=== PATIENT | female | born 1955 | race Caucasian/White ===

== ENCOUNTER 2019-02-12 08:45 | Inpatient (IN) ==
[2019-02-12 11:07] LABS: Basophils % 0.4 % (0.0-0.8); Eosinophils % 0.3 % (0.00-10.9); Hematocrit 33.7 VOL% (35.7-47.0); Hemoglobin 10.4 GM/DL (12.0-16.0); Immature Granulocytes % 0.5 %; Immature Granulocytes Absolute 0.05 #; Lymphocytes # 1.5 10*3/uL (1.4-4.0); Lymphocytes % 15.9 % (21.3-54.2); Mean Corpuscular HGB Conc 30.9 GM/DL (32-36); Mean Corpuscular Volume 81.6 FL (87-102); Mean Platelet Volume 10.3 FL (9.6-12.0); Monocytes % 9.7 % (1.7-12.7); Neutrophils % 73.2 % (38.7-73.9); Platelet Count 310 T/CUMM (130-400); Red Blood Count 4.13 MC/CUMM (3.8-5.5); Red Cell Distribution Width 16.6 % (9.3-17.3); White Blood Count 9.6 T/CUMM (4-12)
[2019-02-12 11:24] LABS: Hypochromasia 1+; Platelet Estimate Adequate
[2019-02-12 11:25] LABS: Albumin 2.6 G/DL (3.4-5.0); Bilirubin,Total 0.4 MG/DL (0.2-1.0); Calcium 8.7 MG/DL (8.5-10.1); Osmolality,Calculated 271.8 MOS/KG (273-304); Total Protein 7.7 G/DL (6.4-8.3)
[2019-02-12] MEDS ORDERED: NICOTINE 21 MG/24 HR PATCH TRANSDERM PRN (12:25)
[2019-02-12] MEDS ORDERED: DEXTROSE 50% 25 GM/50 ML VIAL IV PRN (12:25)
[2019-02-12] MEDS ORDERED: ONDANSETRON 4 MG/2 ML VIAL IV PRN (12:25)
[2019-02-12] MEDS ORDERED: GLUCAGON 1 MG VIAL IM PRN (12:25)
[2019-02-12] MEDS: SODIUM CHLORIDE 0.9% 1,000 ML IV SCH (13:08)
[2019-02-12] MEDS: CEFTAROLINE 600 MG in SODIUM CHLORIDE 0.9% 100 ML IV SCH (13:09)
[2019-02-12] MEDS: ENOXAPARIN 30 MG/0.3 ML SYRINGE SUBCUT SCH (13:09)
[2019-02-12 14:05] LABS: Risk Ratio 5.48; Thyroid Stimulating Hormone 1.74 uIU/ml (0.358-3.74); VLDL CHOLESTEROL 41.2 MG/DL
[2019-02-12] MEDS ORDERED: INSULIN LISPRO 100 UNIT/ML SUBCUT SCH (16:30)
[2019-02-12] MEDS: INSULIN LISPRO 100 UNIT/ML SUBCUT SCH ×2 (16:53→22:29)
[2019-02-12] MEDS: DICLOFENAC 1% GEL 100 GM TUBE TOP SCH ×2 (16:54→22:29)
[2019-02-12] MEDS ORDERED: ACETAMINOPHEN 325 MG TABLET PO PRN (20:34)
[2019-02-12] MEDS ORDERED: INSULIN GLARGINE 100 UNIT/ML SUBCUT SCH (21:00)
[2019-02-12] MEDS: hydrOXYzine HCL 25 MG TABLET PO SCH (22:28)
[2019-02-12] MEDS: ACETAMINOPHEN 325 MG TABLET PO PRN (22:28)
[2019-02-13] MEDS: SODIUM CHLORIDE 0.9% 1,000 ML IV SCH ×2 (02:31→17:58)
[2019-02-13] MEDS: CEFTAROLINE 600 MG in SODIUM CHLORIDE 0.9% 100 ML IV SCH ×2 (02:31→17:57)
[2019-02-13 04:50] LABS: Basophils % 0.3 % (0.0-0.8); Eosinophils # 0.1 10*3/uL (0.0-0.87); Eosinophils % 1.4 % (0.00-10.9); Hematocrit 28.7 VOL% (35.7-47.0); Hemoglobin 8.9 GM/DL (12.0-16.0); Immature Granulocytes % 0.8 %; Immature Granulocytes Absolute 0.07 #; Lymphocytes # 1.5 10*3/uL (1.4-4.0); Mean Corpuscular Volume 81.3 FL (87-102); Mean Platelet Volume 10.3 FL (9.6-12.0); Monocytes % 9.5 % (1.7-12.7); Platelet Count 333 T/CUMM (130-400); Red Blood Count 3.53 MC/CUMM (3.8-5.5); Red Cell Distribution Width 16.7 % (9.3-17.3); White Blood Count 9.2 T/CUMM (4-12)
[2019-02-13 05:17] LABS: Calcium 8.3 MG/DL (8.5-10.1); Osmolality,Calculated 273.1 MOS/KG (273-304)
[2019-02-13] MEDS ORDERED: POTASSIUM CHLORIDE 20 MEQ TABLET PO PRN (08:32)
[2019-02-13] MEDS ORDERED: MAGNESIUM SULF RIDER 4 GM in PREMIX 1 EACH IV PRN (08:33)
[2019-02-13] MEDS ORDERED: MAGNESIUM SULF RIDER 2 GM in PREMIX 1 EACH IV PRN (08:33)
[2019-02-13] MEDS: METOPROLOL SUCCINATE XL 100 MG TABLET PO SCH (08:52)
[2019-02-13] MEDS: PANTOPRAZOLE 40 MG TABLET PO SCH (08:52)
[2019-02-13] MEDS: ATORVASTATIN 40 MG TABLET PO SCH (08:52)
[2019-02-13] MEDS: hydrOXYzine HCL 25 MG TABLET PO SCH ×2 (08:52→21:25)
[2019-02-13] MEDS: ASPIRIN CHEW 81 MG TABLET PO SCH (08:53)
[2019-02-13] MEDS: INSULIN LISPRO 100 UNIT/ML SUBCUT SCH ×4 (08:53→21:33)
[2019-02-13] MEDS: DICLOFENAC 1% GEL 100 GM TUBE TOP SCH ×2 (10:00→21:35)
[2019-02-13] MEDS: ENOXAPARIN 40 MG/0.4 ML SYRINGE SUBCUT SCH (17:57)
[2019-02-13] MEDS: DOCUSATE SODIUM 100 MG CAPSULE PO PRN (21:26)
[2019-02-14] MEDS: CEFTAROLINE 600 MG in SODIUM CHLORIDE 0.9% 100 ML IV SCH ×3 (00:35→18:42)
[2019-02-14 04:43] LABS: Basophils # 0.1 10*3/uL (0.0-0.2); Basophils % 0.5 % (0.0-0.8); Eosinophils # 0.1 10*3/uL (0.0-0.87); Eosinophils % 1.2 % (0.00-10.9); Hematocrit 28.1 VOL% (35.7-47.0); Hemoglobin 8.6 GM/DL (12.0-16.0); Immature Granulocytes % 0.7 %; Immature Granulocytes Absolute 0.08 #; Lymphocytes # 1.2 10*3/uL (1.4-4.0); Mean Corpuscular HGB Conc 30.6 GM/DL (32-36); Mean Corpuscular Volume 81.7 FL (87-102); Mean Platelet Volume 9.9 FL (9.6-12.0); Monocytes % 8.7 % (1.7-12.7); Neutrophils % 78.9 % (38.7-73.9); Platelet Count 379 T/CUMM (130-400); Red Blood Count 3.44 MC/CUMM (3.8-5.5); Red Cell Distribution Width 16.7 % (9.3-17.3); White Blood Count 11.9 T/CUMM (4-12)
[2019-02-14 05:09] LABS: Calcium 8.4 MG/DL (8.5-10.1); Osmolality,Calculated 273.1 MOS/KG (273-304)
[2019-02-14] MEDS: ATORVASTATIN 40 MG TABLET PO SCH (10:39)
[2019-02-14] MEDS: METOPROLOL SUCCINATE XL 100 MG TABLET PO SCH (10:39)
[2019-02-14] MEDS: ASPIRIN CHEW 81 MG TABLET PO SCH (10:39)
[2019-02-14] MEDS: PANTOPRAZOLE 40 MG TABLET PO SCH (10:39)
[2019-02-14] MEDS: hydrOXYzine HCL 25 MG TABLET PO SCH ×2 (10:39→21:54)
[2019-02-14] MEDS: INSULIN LISPRO 100 UNIT/ML SUBCUT SCH ×4 (10:40→21:53)
[2019-02-14] MEDS: DICLOFENAC 1% GEL 100 GM TUBE TOP SCH ×4 (10:41→22:41)
[2019-02-14] MEDS: ENOXAPARIN 40 MG/0.4 ML SYRINGE SUBCUT SCH (17:42)
[2019-02-14] MEDS: metFORMIN 850 MG TABLET PO SCH ×2 (17:42→21:54)
[2019-02-15] MEDS: ACETAMINOPHEN 325 MG TABLET PO PRN (00:40)
[2019-02-15 05:04] LABS: Basophils # 0.1 10*3/uL (0.0-0.2); Basophils % 0.5 % (0.0-0.8); Eosinophils # 0.3 10*3/uL (0.0-0.87); Eosinophils % 2.7 % (0.00-10.9); Hematocrit 27.2 VOL% (35.7-47.0); Hemoglobin 8.4 GM/DL (12.0-16.0); Immature Granulocytes % 1.2 %; Immature Granulocytes Absolute 0.13 #; Lymphocytes # 1.9 10*3/uL (1.4-4.0); Lymphocytes % 17.7 % (21.3-54.2); Mean Corpuscular HGB Conc 30.9 GM/DL (32-36); Mean Corpuscular Volume 81.7 FL (87-102); Mean Platelet Volume 10.2 FL (9.6-12.0); Monocytes % 8.2 % (1.7-12.7); Neutrophils % 69.7 % (38.7-73.9); Platelet Count 404 T/CUMM (130-400); Red Blood Count 3.33 MC/CUMM (3.8-5.5); Red Cell Distribution Width 16.8 % (9.3-17.3); White Blood Count 10.6 T/CUMM (4-12)
[2019-02-15 05:20] LABS: Calcium 8.6 MG/DL (8.5-10.1); Osmolality,Calculated 276.1 MOS/KG (273-304)
[2019-02-15] MEDS: CEFTAROLINE 600 MG in SODIUM CHLORIDE 0.9% 100 ML IV SCH (06:11)
[2019-02-15] MEDS: DICLOFENAC 1% GEL 100 GM TUBE TOP SCH ×5 (07:30→21:23)
[2019-02-15] MEDS: SODIUM CHLORIDE 0.9% 1,000 ML IV SCH ×3 (07:31→21:29)
[2019-02-15] MEDS: metFORMIN 850 MG TABLET PO SCH (08:56)
[2019-02-15] MEDS: METOPROLOL SUCCINATE XL 100 MG TABLET PO SCH (08:57)
[2019-02-15] MEDS: hydrOXYzine HCL 25 MG TABLET PO SCH ×2 (08:57→21:24)
[2019-02-15] MEDS: PANTOPRAZOLE 40 MG TABLET PO SCH (08:57)
[2019-02-15] MEDS: ATORVASTATIN 40 MG TABLET PO SCH (08:57)
[2019-02-15] MEDS: INSULIN LISPRO 100 UNIT/ML SUBCUT SCH ×4 (08:57→21:23)
[2019-02-15] MEDS: ASPIRIN CHEW 81 MG TABLET PO SCH (08:57)
[2019-02-15 10:51] LABS: Calcium 8.6 MG/DL (8.5-10.1); Osmolality,Calculated 277.2 MOS/KG (273-304)
[2019-02-15] MEDS: cefTRIAXone 2,000 MG in SYRINGE 1 EACH IV SCH (12:53)
[2019-02-15] MEDS: ENOXAPARIN 30 MG/0.3 ML SYRINGE SUBCUT SCH (15:47)
[2019-02-15] MEDS: ENOXAPARIN 40 MG/0.4 ML SYRINGE SUBCUT SCH (16:49)
[2019-02-16 05:21] LABS: Basophils # 0.1 10*3/uL (0.0-0.2); Basophils % 0.6 % (0.0-0.8); Eosinophils # 0.4 10*3/uL (0.0-0.87); Eosinophils % 4.1 % (0.00-10.9); Hematocrit 25.3 VOL% (35.7-47.0); Hemoglobin 7.7 GM/DL (12.0-16.0); Immature Granulocytes % 1.4 %; Immature Granulocytes Absolute 0.14 #; Lymphocytes # 1.9 10*3/uL (1.4-4.0); Lymphocytes % 18.7 % (21.3-54.2); Mean Corpuscular HGB Conc 30.4 GM/DL (32-36); Mean Corpuscular Volume 81.4 FL (87-102); Mean Platelet Volume 10.5 FL (9.6-12.0); Neutrophils % 68.2 % (38.7-73.9); Platelet Count 475 T/CUMM (130-400); Red Blood Count 3.11 MC/CUMM (3.8-5.5); White Blood Count 10.1 T/CUMM (4-12)
[2019-02-16 05:45] LABS: Calcium 8.4 MG/DL (8.5-10.1); Osmolality,Calculated 280.1 MOS/KG (273-304)
[2019-02-16 05:53] LABS: Eosinophils 4 % (0-10); Hypochromasia 1+; Lymphocytes 17 % (20-55); Ovalocytes Slight; Platelet Estimate Adequate; Segmented Neutrophils 68 % (50-85); Total Cells Counted 100
[2019-02-16] MEDS: DICLOFENAC 1% GEL 100 GM TUBE TOP SCH ×4 (10:09→20:34)
[2019-02-16] MEDS: cefTRIAXone 2,000 MG in SYRINGE 1 EACH IV SCH (10:11)
[2019-02-16] MEDS: INSULIN LISPRO 100 UNIT/ML SUBCUT SCH ×4 (10:11→21:28)
[2019-02-16] MEDS: METOPROLOL SUCCINATE XL 100 MG TABLET PO SCH (10:13)
[2019-02-16] MEDS: ASPIRIN CHEW 81 MG TABLET PO SCH (10:13)
[2019-02-16] MEDS: ATORVASTATIN 40 MG TABLET PO SCH (10:13)
[2019-02-16] MEDS: PANTOPRAZOLE 40 MG TABLET PO SCH (10:13)
[2019-02-16] MEDS: DOCUSATE SODIUM 100 MG CAPSULE PO PRN (10:13)
[2019-02-16] MEDS: hydrOXYzine HCL 25 MG TABLET PO SCH ×2 (10:13→20:33)
[2019-02-16] MEDS: SODIUM CHLORIDE 0.9% 1,000 ML IV SCH ×2 (10:13→17:18)
[2019-02-16 17:25] LABS: Hematocrit 27.1 VOL% (35.7-47.0); Hemoglobin 8.2 GM/DL (12.0-16.0)
[2019-02-16] MEDS: ENOXAPARIN 40 MG/0.4 ML SYRINGE SUBCUT SCH (18:27)
[2019-02-17] MEDS: SODIUM CHLORIDE 0.9% 1,000 ML IV SCH ×2 (04:22→08:51)
[2019-02-17 05:03] LABS: Basophils # 0.1 10*3/uL (0.0-0.2); Basophils % 0.7 % (0.0-0.8); Eosinophils # 0.4 10*3/uL (0.0-0.87); Eosinophils % 4.1 % (0.00-10.9); Hematocrit 27.1 VOL% (35.7-47.0); Hemoglobin 8.2 GM/DL (12.0-16.0); Immature Granulocytes % 1.6 %; Immature Granulocytes Absolute 0.14 #; Mean Corpuscular HGB Conc 30.3 GM/DL (32-36); Mean Corpuscular Volume 81.9 FL (87-102); Mean Platelet Volume 10.1 FL (9.6-12.0); NRBC # 0.03 10*3/uL; Neutrophils % 63.6 % (38.7-73.9); Platelet Count 571 T/CUMM (130-400); Red Blood Count 3.31 MC/CUMM (3.8-5.5); Red Cell Distribution Width 17.2 % (9.3-17.3); White Blood Count 8.9 T/CUMM (4-12)
[2019-02-17 05:18] LABS: Calcium 8.6 MG/DL (8.5-10.1); Osmolality,Calculated 284.4 MOS/KG (273-304)
[2019-02-17 05:27] LABS: Hypochromasia 1+; Microcytosis 1+; Platelet Estimate Increased; Polychromasia Few
[2019-02-17 07:23] VITALS: BP 118/86
[2019-02-17] MEDS: DICLOFENAC 1% GEL 100 GM TUBE TOP SCH (08:35)
[2019-02-17] MEDS: hydrOXYzine HCL 25 MG TABLET PO SCH (08:51)
[2019-02-17] MEDS: ASPIRIN CHEW 81 MG TABLET PO SCH (08:51)
[2019-02-17] MEDS: PANTOPRAZOLE 40 MG TABLET PO SCH (08:51)
[2019-02-17] MEDS: ATORVASTATIN 40 MG TABLET PO SCH (08:51)
[2019-02-17] MEDS: METOPROLOL SUCCINATE XL 100 MG TABLET PO SCH (08:51)
[2019-02-17] MEDS: INSULIN LISPRO 100 UNIT/ML SUBCUT SCH (08:51)
[2019-02-17] MEDS: cefTRIAXone 2,000 MG in SYRINGE 1 EACH IV SCH (09:51)
== END 2019-02-17 10:55 | disposition home health service (06) | DRG 638 ==
LOC: N.EDINP 08:45 → N.ED 08:45 → N.5E 14:09 → SUATTDRO 02-13 08:01
PROVIDERS: ADMIT Internal Medicine; ATTEND Internal Medicine

== ENCOUNTER 2019-02-20 13:33 | Observation (INO) ==
[2019-02-20] MEDS ORDERED: VANCOMYCIN INJ 1,000 MG in SODIUM CHLORIDE 0.9% 250 ML IV STA (14:17)
[2019-02-20] MEDS ORDERED: VANCOMYCIN 1,000 MG VIAL ONE (14:47)
[2019-02-20 14:59] LABS: Basophils # 0.1 10*3/uL (0.0-0.2); Basophils % 0.4 % (0.0-0.8); Eosinophils # 0.4 10*3/uL (0.0-0.87); Eosinophils % 3.1 % (0.00-10.9); Hematocrit 33.3 VOL% (35.7-47.0); Immature Granulocytes Absolute 0.28 #; Lymphocytes # 2.9 10*3/uL (1.4-4.0); Mean Corpuscular HGB Conc 29.7 GM/DL (32-36); Mean Corpuscular Volume 83.5 FL (87-102); Mean Platelet Volume 9.8 FL (9.6-12.0); Monocytes % 7.2 % (1.7-12.7); Neutrophils % 66.3 % (38.7-73.9); Platelet Count 747 T/CUMM (130-400); Red Cell Distribution Width 18.1 % (9.3-17.3)
[2019-02-20 15:03] LABS: Red Blood Count 3.99 MC/CUMM (3.8-5.5); White Blood Count 13.7 T/CUMM (4-12)
[2019-02-20 15:04] LABS: Hemoglobin 9.9 GM/DL (12.0-16.0)
[2019-02-20 15:20] LABS: Alanine Aminotransferase 34 U/L (13-56); Albumin 2.6 G/DL (3.4-5.0); Alkaline Phosphatase 114 U/L (45-117); Aspartate Amino Transferase 25 U/L (0-37); Blood Urea Nitrogen 13 MG/DL (7-18); Calcium 8.9 MG/DL (8.5-10.1); Estimated Glom Filtration Rate 59 ML/MIN; Glucose 164 MG/DL (74-106); Total Protein 7.9 G/DL (6.4-8.3)
[2019-02-20] MEDS ORDERED: SODIUM CHLORIDE 0.9% 1,000 ML IV STA (15:23)
[2019-02-20] MEDS ORDERED: fentaNYL 100 MCG/2 ML VIAL IV STA (15:23)
[2019-02-20] MEDS ORDERED: ONDANSETRON 4 MG/2 ML VIAL IV STA (15:23)
[2019-02-20] MEDS ORDERED: BISACODYL 5 MG TABLET PO PRN (16:08)
[2019-02-20] MEDS ORDERED: ACETAMINOPHEN 325 MG TABLET PO PRN (16:08)
[2019-02-20] MEDS ORDERED: ONDANSETRON 4 MG/2 ML VIAL IV PRN (16:08)
[2019-02-20] MEDS ORDERED: DEXTROSE 10% 25 GM/250 ML BAG IV PRN (16:08)
[2019-02-20] MEDS ORDERED: NICOTINE 21 MG/24 HR PATCH TRANSDERM PRN (16:08)
[2019-02-20] MEDS ORDERED: GLUCAGON 1 MG VIAL IM PRN (16:08)
[2019-02-20] MEDS ORDERED: LACTULOSE 20 GM/30 ML UDCUP PO PRN (16:08)
[2019-02-20] MEDS: INSULIN REGULAR 100 UNIT/ML SUBCUT SCH ×2 (17:47→20:46)
[2019-02-20] MEDS: ENOXAPARIN 40 MG/0.4 ML SYRINGE SUBCUT SCH (18:06)
[2019-02-20] MEDS: PIPERACILLIN/TAZOBACTAM 3,375 MG in SODIUM CHLORIDE 0.9% 100 ML IV SCH (18:06)
[2019-02-20 20:35] LABS: Apearance,Urine CLEAR (Clear); Bilirubin,Urine Negative (Negative); Blood, Urine Small mg/dL (Negative); Glucose,Urine (UA) Negative (Negative); Hyaline Casts,Urine 1 /LPF (0-3); Ketones,Urine Negative (Negative); Mucus,Urine Occasional /LPF (Occasional); Nitrite,Urine Negative (Negative); Protein,Urine Negative; RBC,Urine 4 /HPF (0-4); Squamous Epithelial Cell,Urine Occasional /HPF (0-10); Urine Color Yellow (Yellow); Urine Specific Gravity 1.011 (1.001-1.035); Urine Urobilinogen < 2.0 EU/DL (0.2-1.0); WBC,Urine 20 /HPF (0-6)
[2019-02-20] MEDS: BACLOFEN 10 MG TABLET PO SCH (20:35)
[2019-02-20] MEDS: DOCUSATE SODIUM 100 MG CAPSULE PO SCH (20:35)
[2019-02-20 20:43] LABS: Barbiturates Screen,Urine Negative (Negative); Benzodiazepines Screen,Urine Negative (Negative); Cannabinoid Screen,Urine Negative (Negative); Opiate Screen,Urine Negative (Negative); Phencyclidine Screen,Urine Negative (Negative)
[2019-02-20] MEDS: INSULIN GLARGINE 100 UNIT/ML SUBCUT SCH (20:46)
[2019-02-20] MEDS ORDERED: VANCOMYCIN INJ 1,750 MG in SODIUM CHLORIDE 0.9% 500 ML IV SCH (21:00)
[2019-02-20] MEDS ORDERED: TORSEMIDE 20 MG TABLET PO SCH (21:00)
[2019-02-21] MEDS: ALUMINUM/MAGNES/SIMETH MAX STR 30 ML UDCUP PO PRN ×2 (00:19→20:47)
[2019-02-21 04:59] LABS: Basophils # 0.1 10*3/uL (0.0-0.2); Basophils % 0.6 % (0.0-0.8); Eosinophils # 0.5 10*3/uL (0.0-0.87); Eosinophils % 4.4 % (0.00-10.9); Hematocrit 28.8 VOL% (35.7-47.0); Hemoglobin 8.5 GM/DL (12.0-16.0); Immature Granulocytes % 2.2 %; Immature Granulocytes Absolute 0.24 #; Lymphocytes # 2.9 10*3/uL (1.4-4.0); Lymphocytes % 26.1 % (21.3-54.2); Mean Corpuscular HGB Conc 29.5 GM/DL (32-36); Mean Corpuscular Volume 83.2 FL (87-102); Mean Platelet Volume 9.5 FL (9.6-12.0); Monocytes % 7.7 % (1.7-12.7); Platelet Count 630 T/CUMM (130-400); Red Blood Count 3.46 MC/CUMM (3.8-5.5); White Blood Count 11.1 T/CUMM (4-12)
[2019-02-21 05:17] LABS: Calcium 8.2 MG/DL (8.5-10.1); Osmolality,Calculated 287.1 MOS/KG (273-304); Risk Ratio 4.33; VLDL CHOLESTEROL 37.4 MG/DL
[2019-02-21 05:20] LABS: % Iron Saturation 11.3 % (18-50); Ferritin 35.3 ng/ml (8-252)
[2019-02-21] MEDS: PIPERACILLIN/TAZOBACTAM 3,375 MG in SODIUM CHLORIDE 0.9% 100 ML IV SCH (06:07)
[2019-02-21] MEDS ORDERED: FUROSEMIDE 40 MG/4 ML VIAL IV ONE (08:30)
[2019-02-21] MEDS: ATORVASTATIN 40 MG TABLET PO SCH (08:44)
[2019-02-21] MEDS: METOPROLOL SUCCINATE XL 100 MG TABLET PO SCH (08:44)
[2019-02-21] MEDS: PANTOPRAZOLE 40 MG TABLET PO SCH (08:44)
[2019-02-21] MEDS: BACLOFEN 10 MG TABLET PO SCH ×2 (08:44→20:47)
[2019-02-21] MEDS: TORSEMIDE 20 MG TABLET PO SCH ×2 (08:44→16:24)
[2019-02-21] MEDS: ASPIRIN CHEW 81 MG TABLET PO SCH (08:44)
[2019-02-21] MEDS: INSULIN GLARGINE 100 UNIT/ML SUBCUT SCH ×2 (08:45→22:37)
[2019-02-21] MEDS: INSULIN REGULAR 100 UNIT/ML SUBCUT SCH ×4 (08:45→22:38)
[2019-02-21] MEDS: ENOXAPARIN 40 MG/0.4 ML SYRINGE SUBCUT SCH (08:51)
[2019-02-21] MEDS: DOCUSATE SODIUM 100 MG CAPSULE PO SCH ×2 (08:58→20:46)
[2019-02-21] MEDS ORDERED: cefTRIAXone 1,000 MG in SYRINGE 1 EACH IV SCH (12:00)
[2019-02-21] MEDS: BUMETANIDE 1 MG/4 ML VIAL IV SCH (16:25)
[2019-02-21] MEDS: hydrOXYzine HCL 25 MG TABLET PO PRN (20:46)
[2019-02-21] MEDS: FERROUS SULFATE 325 MG TABLET PO SCH ×2 (20:47→22:24)
[2019-02-21] MEDS: FAMOTIDINE 20 MG TABLET PO SCH (23:06)
[2019-02-22 05:49] LABS: Basophils # 0.1 10*3/uL (0.0-0.2); Basophils % 0.8 % (0.0-0.8); Eosinophils # 0.5 10*3/uL (0.0-0.87); Eosinophils % 4.5 % (0.00-10.9); Hematocrit 34.2 VOL% (35.7-47.0); Hemoglobin 10.2 GM/DL (12.0-16.0); Immature Granulocytes % 1.2 %; Immature Granulocytes Absolute 0.13 #; Lymphocytes # 3.2 10*3/uL (1.4-4.0); Lymphocytes % 28.4 % (21.3-54.2); Mean Corpuscular HGB Conc 29.8 GM/DL (32-36); Mean Platelet Volume 9.7 FL (9.6-12.0); Monocytes % 7.3 % (1.7-12.7); Neutrophils % 57.8 % (38.7-73.9); Platelet Count 738 T/CUMM (130-400); Red Blood Count 4.07 MC/CUMM (3.8-5.5); Red Cell Distribution Width 17.9 % (9.3-17.3); White Blood Count 11.2 T/CUMM (4-12)
[2019-02-22 06:06] LABS: Calcium 9.1 MG/DL (8.5-10.1); Osmolality,Calculated 284.5 MOS/KG (273-304)
[2019-02-22] MEDS ORDERED: ERGOCALCIFEROL 50,000 UNIT CAPSULE PO SCH (09:00)
[2019-02-22] MEDS: DOCUSATE SODIUM 100 MG CAPSULE PO SCH ×2 (09:04→21:06)
[2019-02-22] MEDS: METOPROLOL SUCCINATE XL 100 MG TABLET PO SCH (09:05)
[2019-02-22] MEDS: TORSEMIDE 20 MG TABLET PO SCH ×2 (09:05→18:18)
[2019-02-22] MEDS: ASPIRIN CHEW 81 MG TABLET PO SCH (09:05)
[2019-02-22] MEDS: ATORVASTATIN 40 MG TABLET PO SCH (09:05)
[2019-02-22] MEDS: PANTOPRAZOLE 40 MG TABLET PO SCH (09:05)
[2019-02-22] MEDS: FAMOTIDINE 20 MG TABLET PO SCH ×2 (09:05→21:05)
[2019-02-22] MEDS: BUMETANIDE 1 MG/4 ML VIAL IV SCH ×2 (09:06→18:26)
[2019-02-22] MEDS: BACLOFEN 10 MG TABLET PO SCH ×2 (09:06→21:05)
[2019-02-22] MEDS: FERROUS SULFATE 325 MG TABLET PO SCH ×2 (09:06→21:10)
[2019-02-22] MEDS: ENOXAPARIN 40 MG/0.4 ML SYRINGE SUBCUT SCH (09:13)
[2019-02-22] MEDS: INSULIN GLARGINE 100 UNIT/ML SUBCUT SCH ×2 (09:13→21:08)
[2019-02-22] MEDS: INSULIN REGULAR 100 UNIT/ML SUBCUT SCH (09:15)
[2019-02-22] MEDS: hydrOXYzine HCL 25 MG TABLET PO PRN (09:40)
[2019-02-22] MEDS: cefTRIAXone 1,000 MG in SODIUM CHLORIDE 0.9% 100 ML IV SCH (09:42)
[2019-02-22] MEDS: INSULIN LISPRO 100 UNIT/ML SUBCUT SCH ×5 (12:28→21:07)
[2019-02-23 06:05] LABS: Basophils # 0.1 10*3/uL (0.0-0.2); Basophils % 0.7 % (0.0-0.8); Eosinophils # 0.5 10*3/uL (0.0-0.87); Eosinophils % 4.6 % (0.00-10.9); Hematocrit 31.5 VOL% (35.7-47.0); Hemoglobin 9.3 GM/DL (12.0-16.0); Immature Granulocytes % 0.9 %; Lymphocytes # 2.9 10*3/uL (1.4-4.0); Lymphocytes % 24.9 % (21.3-54.2); Mean Corpuscular HGB Conc 29.5 GM/DL (32-36); Mean Corpuscular Volume 84.5 FL (87-102); Mean Platelet Volume 9.5 FL (9.6-12.0); Monocytes % 7.1 % (1.7-12.7); Neutrophils % 61.8 % (38.7-73.9); Platelet Count 650 T/CUMM (130-400); Red Blood Count 3.73 MC/CUMM (3.8-5.5); White Blood Count 11.5 T/CUMM (4-12)
[2019-02-23 06:28] LABS: Calcium 8.9 MG/DL (8.5-10.1); Osmolality,Calculated 281.5 MOS/KG (273-304)
[2019-02-23] MEDS: INSULIN GLARGINE 100 UNIT/ML SUBCUT SCH (08:40)
[2019-02-23] MEDS: INSULIN LISPRO 100 UNIT/ML SUBCUT SCH ×4 (08:40→12:25)
[2019-02-23] MEDS: cefTRIAXone 1,000 MG in SODIUM CHLORIDE 0.9% 100 ML IV SCH (08:41)
[2019-02-23] MEDS: ASPIRIN CHEW 81 MG TABLET PO SCH (08:43)
[2019-02-23] MEDS: TORSEMIDE 20 MG TABLET PO SCH (08:43)
[2019-02-23] MEDS: BUMETANIDE 1 MG/4 ML VIAL IV SCH (08:43)
[2019-02-23] MEDS: ATORVASTATIN 40 MG TABLET PO SCH (08:43)
[2019-02-23] MEDS: METOPROLOL SUCCINATE XL 100 MG TABLET PO SCH (08:44)
[2019-02-23] MEDS: DOCUSATE SODIUM 100 MG CAPSULE PO SCH (08:44)
[2019-02-23] MEDS: BACLOFEN 10 MG TABLET PO SCH (08:44)
[2019-02-23] MEDS: PANTOPRAZOLE 40 MG TABLET PO SCH (08:44)
[2019-02-23] MEDS: FAMOTIDINE 20 MG TABLET PO SCH (08:44)
[2019-02-23] MEDS: FERROUS SULFATE 325 MG TABLET PO SCH (08:45)
[2019-02-23] MEDS: ENOXAPARIN 40 MG/0.4 ML SYRINGE SUBCUT SCH (10:38)
[2019-02-23] MEDS: hydrOXYzine HCL 25 MG TABLET PO PRN (11:37)
[2019-02-23 11:38] VITALS: BP 153/84
[2019-02-23] MEDS ORDERED: CLINDAMYCIN 300 MG CAPSULE PO SCH (13:00)
== END 2019-02-23 15:20 | disposition home health service (06) ==
LOC: N.EDINP 13:33 → N.ED 13:33 → N.2E 17:25
PROVIDERS: ADMIT Internal Medicine; ATTEND Internal Medicine

== ENCOUNTER 2021-11-30 09:10 | Inpatient (IN) ==
[2021-11-30 10:00] LABS: INR 1.3; PT Patient Result 13.9 SECS (10.5-12.0); Partial Thromboplastin Time 26.3 SECS (23.7-32.9)
[2021-11-30 10:02] LABS: Basophils # 0.1 10*3/uL (0.0-0.2); Basophils % 0.7 % (0.0-0.8); Eosinophils # 0.2 10*3/uL (0.0-0.87); Eosinophils % 1.4 % (0.00-10.9); Immature Granulocytes % 1.4 %; Immature Granulocytes Absolute 0.19 #; Lymphocytes # 1.4 10*3/uL (1.4-4.0); Lymphocytes % 10.3 % (21.3-54.2); Mean Corpuscular HGB Conc 25.9 GM/DL (32-36); Mean Corpuscular Volume 66.4 FL (87-102); Monocytes # 1.1 10*3/uL (0.11-0.8); Monocytes % 7.9 % (1.7-12.7); NRBC # 0.07 10*3/uL; Neutrophils % 78.3 % (38.7-73.9); Platelet Count 491 T/CUMM (130-400); Red Blood Count 2.44 MC/CUMM (3.8-5.5); Red Cell Distribution Width 21.9 % (9.3-17.3); White Blood Count 13.8 T/CUMM (4-12)
[2021-11-30 10:08] LABS: Albumin 2.7 G/DL (3.4-5.0); Bilirubin,Total 0.7 MG/DL (0.20-1.00); Calcium 9.2 MG/DL (8.5-10.1); Hematocrit 16.2 VOL% (35.7-47.0); Hemoglobin 4.2 GM/DL (12.0-16.0); Osmolality,Calculated 287.8 MOS/KG (273-304); Potassium 3.6 MMOL/L (3.5-5.1); Total Protein 6.5 G/DL (6.4-8.2)
[2021-11-30 10:09] LABS: Folate 17.84 NG/ML (5.38-24.0)
[2021-11-30 10:24] LABS: Platelet Estimate Normal
[2021-11-30 10:25] LABS: Anisocytosis 2+; Hypochromia 1+; Polychromasia Slight
[2021-11-30] MEDS ORDERED: SODIUM CHLORIDE 0.9% 1,000 ML IV STA (11:13)
[2021-11-30] MEDS ORDERED: SODIUM CHLORIDE 0.9% 1,000 ML IV PRN ×2 (11:18→12:05)
[2021-11-30] MEDS ORDERED: GLUCAGON 1 MG VIAL IM PRN (12:00)
[2021-11-30] MEDS ORDERED: ACETAMINOPHEN 325 MG TABLET PO PRN (12:00)
[2021-11-30] MEDS ORDERED: ONDANSETRON 4 MG/2 ML VIAL IV PRN (12:00)
[2021-11-30] MEDS ORDERED: DEXTROSE 10% 250 ML BAG IV PRN (12:13)
[2021-11-30] MEDS ORDERED: DICLOFENAC 1% GEL 100 GM TUBE TOP SCH (13:00)
[2021-11-30] MEDS: PANTOPRAZOLE 40 MG TABLET PO SCH (14:00)
[2021-11-30] MEDS: INSULIN LISPRO 100 UNIT/ML SUBCUT SCH ×2 (18:03→23:08)
[2021-11-30] MEDS: hydrOXYzine HCL 25 MG TABLET PO PRN (20:41)
[2021-11-30] MEDS: BACLOFEN 10 MG TABLET PO PRN (20:42)
[2021-11-30] MEDS: CHOLECALCIFEROL 1,000 UNIT TABLET PO SCH (20:43)
[2021-11-30] MEDS ORDERED: TORSEMIDE 20 MG TABLET PO SCH (21:00)
[2021-11-30] MEDS ORDERED: INSULIN LISPRO 100 UNIT/ML SUBCUT SCH (21:00)
[2021-11-30] MEDS: INSULIN GLARGINE 100 UNIT/ML SUBCUT SCH (23:09)
[2021-11-30] MEDS: METOPROLOL SUCCINATE XL 100 MG TABLET PO SCH (23:10)
[2021-11-30 23:34] LABS: Hematocrit 23.7 VOL% (35.7-47.0); Hemoglobin 6.6 GM/DL (12.0-16.0)
[2021-11-30] MEDS ORDERED: ALBUTEROL/IPRATROPIUM 3 ML NEB RESP TX PRN (23:53)
[2021-11-30] MEDS ORDERED: FUROSEMIDE 20 MG/2 ML VIAL IV ONE (23:59)
[2021-12-01 06:18] LABS: Basophils # 0.1 10*3/uL (0.0-0.2); Basophils % 0.8 % (0.0-0.8); Eosinophils # 0.4 10*3/uL (0.0-0.87); Eosinophils % 3.8 % (0.00-10.9); Hematocrit 27.4 VOL% (35.7-47.0); Hemoglobin 8.1 GM/DL (12.0-16.0); Immature Granulocytes % 0.8 %; Immature Granulocytes Absolute 0.09 #; Lymphocytes # 1.7 10*3/uL (1.4-4.0); Lymphocytes % 14.9 % (21.3-54.2); Mean Corpuscular HGB Conc 29.6 GM/DL (32-36); Mean Corpuscular Volume 73.5 FL (87-102); Mean Platelet Volume 9.7 FL (9.6-12.0); Monocytes # 0.9 10*3/uL (0.11-0.8); NRBC # 0.03 10*3/uL; Neutrophils % 71.7 % (38.7-73.9); Platelet Count 455 T/CUMM (130-400); Red Blood Count 3.73 MC/CUMM (3.8-5.5); Red Cell Distribution Width 25.3 % (9.3-17.3); White Blood Count 11.5 T/CUMM (4-12)
[2021-12-01 06:28] LABS: INR 1.2; PT Patient Result 12.7 SECS (10.5-12.0)
[2021-12-01 06:35] LABS: Albumin 2.8 G/DL (3.4-5.0); Calcium 9.3 MG/DL (8.5-10.1); Osmolality,Calculated 290.1 MOS/KG (273-304); Potassium 2.8 MMOL/L (3.5-5.1); Total Protein 7.1 G/DL (6.4-8.2)
[2021-12-01 06:42] LABS: Anisocytosis 1+; Platelet Estimate Normal
[2021-12-01 06:43] LABS: Hypochromia Slight; Poikilocytosis Slight; Tear Drop Cells Few
[2021-12-01 07:01] LABS: Hemoglobin 8.1 GM/DL (12.0-16.0)
[2021-12-01] MEDS ORDERED: INSULIN LISPRO 100 UNIT/ML SUBCUT SCH (08:00)
[2021-12-01] MEDS ORDERED: metOLazone 5 MG TABLET PO SCH (09:00)
[2021-12-01] MEDS: INSULIN LISPRO 100 UNIT/ML SUBCUT SCH ×4 (09:50→21:13)
[2021-12-01] MEDS ORDERED: GLUCAGON 1 MG VIAL IM PRN (09:50)
[2021-12-01] MEDS ORDERED: DEXTROSE 50% 25 GM/50 ML VIAL IV PRN (09:50)
[2021-12-01 11:44] LABS: Hepatitis B Core IgM Quant 0.16 Index; Hepatitis B Surface Ag Quant 0.31 Index; Hepatitis B Surface Ag Result Non-Reactive (NonReactive); Hepatitis C Virus Ab Quant 0.23 Index; Hepatitis C Virus Ab Result Non-Reactive (NonReactive)
[2021-12-01] MEDS: LORATADINE 10 MG TABLET PO SCH (12:21)
[2021-12-01] MEDS: PANTOPRAZOLE 40 MG TABLET PO SCH (12:21)
[2021-12-01] MEDS: AMIODARONE 200 MG TABLET PO SCH (12:21)
[2021-12-01] MEDS: ATORVASTATIN 40 MG TABLET PO SCH (12:21)
[2021-12-01] MEDS: CHOLECALCIFEROL 1,000 UNIT TABLET PO SCH ×2 (12:22→21:12)
[2021-12-01] MEDS: METOPROLOL SUCCINATE XL 100 MG TABLET PO SCH ×2 (12:22→21:12)
[2021-12-01] MEDS: INSULIN GLARGINE 100 UNIT/ML SUBCUT SCH (14:29)
[2021-12-01 14:35] LABS: Hematocrit 26.2 VOL% (35.7-47.0); Hemoglobin 7.8 GM/DL (12.0-16.0)
[2021-12-01] MEDS ORDERED: POTASSIUM CHLORIDE 20 MEQ TABLET PO ONE (15:30)
[2021-12-01] MEDS: hydrOXYzine HCL 25 MG TABLET PO PRN (21:12)
[2021-12-01] MEDS: BACLOFEN 10 MG TABLET PO PRN (21:12)
[2021-12-02 00:18] LABS: Hematocrit 26.1 VOL% (35.7-47.0); Hemoglobin 7.7 GM/DL (12.0-16.0)
[2021-12-02] MEDS: POTASSIUM CHLORIDE 20 MEQ TABLET PO PRN ×2 (01:03→03:54)
[2021-12-02 04:41] LABS: Basophils # 0.1 10*3/uL (0.0-0.2); Basophils % 0.7 % (0.0-0.8); Eosinophils # 0.4 10*3/uL (0.0-0.87); Eosinophils % 3.2 % (0.00-10.9); Hematocrit 27.5 VOL% (35.7-47.0); Immature Granulocytes % 1.3 %; Immature Granulocytes Absolute 0.15 #; Lymphocytes # 1.9 10*3/uL (1.4-4.0); Lymphocytes % 16.6 % (21.3-54.2); Mean Corpuscular HGB Conc 29.1 GM/DL (32-36); Mean Corpuscular Volume 75.1 FL (87-102); Mean Platelet Volume 9.5 FL (9.6-12.0); Monocytes # 0.9 10*3/uL (0.11-0.8); Monocytes % 7.8 % (1.7-12.7); Neutrophils % 70.4 % (38.7-73.9); Platelet Count 475 T/CUMM (130-400); Red Blood Count 3.66 MC/CUMM (3.8-5.5); Red Cell Distribution Width 25.2 % (9.3-17.3); White Blood Count 11.7 T/CUMM (4-12)
[2021-12-02 05:08] LABS: Calcium 9.6 MG/DL (8.5-10.1); Hypochromia 1+; Microcytosis 2+; Osmolality,Calculated 297.7 MOS/KG (273-304); Potassium 3.9 MMOL/L (3.5-5.1)
[2021-12-02 05:09] LABS: Polychromasia Slight; Spherocytes Slight; Target Cells Slight
[2021-12-02] MEDS ORDERED: LACTATED RINGERS 1,000 ML IV SCH (08:00)
[2021-12-02 08:14] VITALS: BP 133/114
[2021-12-02] MEDS: ATORVASTATIN 40 MG TABLET PO SCH (08:43)
[2021-12-02] MEDS: AMIODARONE 200 MG TABLET PO SCH (08:43)
[2021-12-02] MEDS: LORATADINE 10 MG TABLET PO SCH (08:43)
[2021-12-02] MEDS: INSULIN LISPRO 100 UNIT/ML SUBCUT SCH (08:43)
[2021-12-02] MEDS: METOPROLOL SUCCINATE XL 100 MG TABLET PO SCH (08:50)
[2021-12-02] MEDS: PANTOPRAZOLE 40 MG TABLET PO SCH (08:50)
[2021-12-02] MEDS: CHOLECALCIFEROL 1,000 UNIT TABLET PO SCH (08:50)
== END 2021-12-02 09:25 | disposition left against medical advice (07) | DRG 812 ==
LOC: N.ED 09:10 → N.EDINP 12:01 → SUATTDRO 12:01 → N.3E 14:32
PROVIDERS: ADMIT Internal Medicine; ATTEND Internal Medicine Geriatric Medicine